=== PATIENT | male | born 1945 | race Caucasian/White ===

== ENCOUNTER 2017-04-08 18:46 | Inpatient (IN) | payer OTHER ==
[2017-04-08] MEDS ORDERED: NS 0.9% 1000 ML*IV.FLUID IV ONE (20:51)
[2017-04-08] MEDS ORDERED: Ondansetron INJ* 2 MG/ML VIAL IV ONE (20:51)
[2017-04-08] MEDS ORDERED: Morphine INJ* 4 MG/ML 1 ML CARPUJECT IV ONE (20:54)
[2017-04-08] MEDS ORDERED: metroNIDAZOLE IV 500 MG/100ML* 500 MG/100 ML BAG IVPB ONE (20:55)
[2017-04-08] MEDS ORDERED: Levofloxacin 500 MG IVPREMIX(* 500 MG/100 ML BAG IVPB ONE (20:55)
[2017-04-08 21:21] LABS: Urine Appearance Clear; Urine Blood 2+ (Negative); Urine Color Yellow; Urine Ketones Negative (Negative); Urine Protein Negative (Negative); Urine Specific Gravity 1.011 (1.010-1.030); Urine Urobilinogen Negative (Negative)
[2017-04-08 21:29] LABS: ABS Basophils 0.2 10^3/ul (0-0.2); ABS Eosinophils 0 10^3/ul (0-0.6); ABS Lymphocytes 0.8 10^3/ul (1.0-4.8); ABS Monocytes 3.4 10^3/ul (0-0.8); ABS Neutrophils 17.6 10^3/ul (1.5-7.7); ABS Nucleated RBC 0 10^3/ul; Eosinophil % 0 % (0-6); Hematocrit 40 % (42-52); Hemoglobin 13.4 g/dl (14.0-18.0); Lymphocyte % 3.5 % (25-47); Mean Corpuscular HGB Conc 34 g/dl (31-36); Mean Corpuscular Hemoglobin 32 pg (27-31); Mean Corpuscular Volume 94 fL (80-94); Mean Platelet Volume 10 um3 (7.4-10.4); Nucleated Red Blood Cells % 0; Platelet Count 149 10^3/ul (150-450); Red Blood Count 4.22 10^6/ul (4.0-5.4); Red Cell Distribution Width 14 % (10.5-15)
[2017-04-08 21:39] LABS: INR 0.9 (0.77-1.02)
[2017-04-08 21:43] LABS: EGFR Non-African American 45.4 (>60)
[2017-04-08 21:51] LABS: Platelet Morphology Large
--- NOTE | 2017-04-08 21:58 | RAD ---
INDICATION: Right upper quadrant pain. COMPARISON: There are no prior studies available for comparison. TECHNIQUE: Multiple real-time images of the right upper quadrant were obtained. FINDINGS: The gallbladder is contracted limiting the study. No gallstones or gallbladder wall thickening is seen. No intra or extrahepatic ductal distention is present. The common bile duct measured 0.3 cm in diameter. The liver is mildly enlarged without focal abnormality. The pancreas is partially obscured by overlying bowel gas. The right kidney is normal in size without evidence for hydronephrosis. IMPRESSION: 1. CONTRACTED GALLBLADDER, NO GALLSTONES OR GALLBLADDER WALL THICKENING IS SEEN. 2. MILD HEPATOMEGALY.
--- NOTE | 2017-04-09 00:55 | RAD ---
INDICATION: Abdominal pain. COMPARISON: Comparison is made with a prior right upper quadrant ultrasound from April 08, 2017. TECHNIQUE: A CT scan of the abdomen and pelvis was performed without intravenous or oral contrast. Contiguous axial sections were obtained from the lung bases through the symphysis pubis. Images were reconstructed in the coronal and sagittal planes. FINDINGS: The lung bases are clear. No pleural effusion is present. There is a small right pleural effusion and right lower lobe infiltrate. The left lung base appears clear. The liver and spleen are within normal limits in size without focal abnormality on this noncontrast study. No calcified gallstones are seen. The pancreas appears to be within normal limits. The adrenal glands and kidneys are normal in size. No renal calculi or hydronephrosis is seen. The urinary bladder appears distended. No intraluminal abnormality or wall thickening is seen. The patient is status post prostatectomy. The aorta is normal in caliber with moderate calcific plaque present. No significant enlarged retroperitoneal lymph nodes are seen. The stomach, small and large bowel appear nondistended. The appendix is within normal limits. There is mild descending and sigmoid diverticulosis without evidence for diverticulitis. No free intraperitoneal air or fluid is seen. No significant focal osseous abnormality is seen. IMPRESSION: 1. SMALL RIGHT PLEURAL EFFUSION AND RIGHT LOWER LOBE INFILTRATE. 2. DISTENDED URINARY BLADDER. 3. STATUS POST POST PROSTATECTOMY.
--- NOTE | 2017-04-09 01:30 | ED ---
Dniesh Flores Tecjoon, scribed for Amelia Short MD on 04/08/17 at 2101 . Abdominal Pain/Male - HPI Summary HPI Summary: This patient is a 72 year old brought in by correctional facility vehicle to [facility] accompanied by correctional officers with a chief complaint of right flank pain since 3 days ago. Patients that that its in his liver or kidney. Patient is lying on his right side and has difficulty moving into another position without flares of pain. The pain is rated 7/10 in severity. Symptoms aggravated by movement. Symptoms alleviated by nothing. Patient additionally reports fever. Patient denies vomiting. - History of Current Complaint Chief Complaint: EDFlankPain Stated Complaint: RT FLANK PAIN Time Seen by Provider: 04/08/17 20:27 Hx Obtained From: Patient Onset/Duration: Lasting Days - 3 Timing: Constant Severity Currently: Moderate Pain Intensity: 7 Pain Scale Used: 0-10 Numeric Location: Other - right abdomen Aggravating Factor(s): Movement Alleviating Factor(s): Nothing Associated Signs And Symptoms: Positive: Negative - vomiting, Other - fever - Allergies/Home Medications Allergies/Adverse Reactions: Allergies Allergy/AdvReac Type Severity Reaction Status Date / Time Sulfa Antibiotics Allergy Severe Rash Verified 04/08/17 21:03 Aspirin [ASA] Allergy Rash Verified 04/08/17 21:04 Ibuprofen Allergy Rash Verified 04/08/17 21:04 iv dye Allergy Rash Uncoded 04/08/17 21:22 PMH/Surg Hx/FS Hx/Imm Hx Previously Healthy: Yes Opthamlomology History: Reports: Other Sensory Impairments - "broken equilibrium ", uses wheelchair for movement Denies: Hx Legally Blind EENT History: Denies: Hx Deafness - Surgical History Surgery Procedure, Year, and Place: Prostate Infectious Disease History: No Infectious Disease History: Denies: Traveled Outside the [place] in Last 30 Days - Family History Known Family History: Negative: Seizure Disorder - Social History Occupation: Unemployed Lives: [facility] - correctional facility Alcohol Use: None Hx Substance Use: No Substance Use Type: Reports: None Smoking Status (MU): Unknown if Ever Smoked Review of Systems Positive: Fever Positive: Abdominal Pain. Negative: Vomiting All Other Systems Reviewed And Are Negative: Yes Physical Exam - Summary Physical Exam Summary: VITAL SIGNS: Reviewed. GENERAL: Patient is an elderly male who is lying in the stretcher. Patient is not in any acute respiratory distress. HEAD AND FACE: No signs of trauma. No ecchymosis, hematomas or skull depressions. No sinus tenderness. EYES: PERRLA, EOMI x 2, No injected conjunctiva, no nystagmus. EARS: Hearing grossly intact. Ear canals and tympanic membranes are within normal limits. MOUTH: Oropharynx within normal limits. NECK: Supple, trachea is midline, no adenopathy, no JVD, no carotid bruit, no c- spine tenderness, neck with full ROM. CHEST: Symmetric, no tenderness at palpation LUNGS: Clear to auscultation bilaterally. No wheezing or crackles. CVS: Regular rate and rhythm, S1 and S2 present, no murmurs or gallops appreciated. ABDOMEN: RUQ tenderness. Lora's sign positive. EXTREMITIES: FROM in all major joints, no edema, no cyanosis or clubbing. NEURO: Alert and oriented x 3. No acute neurological deficits. Speech is normal and follows commands. SKIN: Dry and warm Triage Information Reviewed: Yes Vital Signs On Initial Exam: Initial Vitals Temp Pulse Resp BP Pulse Ox 98.5 F 106 20 133/76 94 04/08/17 18:50 04/08/17 18:50 04/08/17 18:50 04/08/17 18:50 04/08/17 18:50 Vital Signs Reviewed: Yes Diagnostics - Vital Signs Vital Signs Temp Pulse Resp BP Pulse Ox 04/08/17 20:38 122 155/97 91 04/08/17 18:50 98.5 F 106 20 133/76 94 - Laboratory Result Diagrams: 04/08/17 21:16 04/08/17 21:16 Lab Statement: Any lab studies that have been ordered have been reviewed, and results considered in the medical decision making process. - Radiology CXR Xray Interpretation: Positive (See Comments) - IMPRESSION: Questionable right lower lung nodule Radiology Interpretation Completed By: ED Physician - EKG 8761 Cardiac Rate: Tachycardia EKG Rhythm: Sinus Tachycardia - 103 BPM EKG Interpretation: Sinus tachycardia (103 BPM), Normal axis, Incomplete left bundle block. - Additional Comments Diagnostic Additional Comments: US Abdomen reveals, per radiologist, IMPRESSION: 1. CONTRACTED GALLBLADDER, NO GALLSTONES OR GALLBLADDER WALL THICKENING IS SEEN. 2. MILD HEPATOMEGALY. ED physician has reviewed this radiology report. Abdominal Pain Fem Course/Dx - Course Course Of Treatment: This patient is a 72 year old brought in by correctional facility vehicle to [facility] accompanied by correctional officers with a chief complaint of right flank pain since 3 days ago. Patients that that its in his liver or kidney. EKG, US Abd, and CXR taken. Bloodwork Obtained. In the ED course the patient was given Zofran, Morphine, Flagyl, Levaquin. Patient will be admitted with diagnosis of right lower pneumonia. Patient is agreeable to this plan. - Diagnoses Provider Diagnoses: Right lower lobe pneumonia - Provider Notifications Discussed Care Of Patient With: Tiago Finn - Hospitalist Time Discussed With Above Provider: 01:22 - We discussed patient care with Dr. Finn (Hospitalist) and he agrees to admit patient. Discharge - Discharge Plan Condition: Fair Disposition: HOME Patient Education Materials: Pneumonia (ED) Referrals: No Primary Care Phys,NOPCP [Primary Care Provider] - 3 Days Additional Instructions: Patient will be discharged with a diagnosis of right lower pneumonia. Patient is advised to follow up with PCP in 3 days. RETURN TO EMERGENCY DEPARTMENT FOR ANY NEW OR WORSENING SYMPTOMS The documentation as recorded by the Dinesh horan Tecjoon accurately reflects the service I personally performed and the decisions made by , Amelia Short MD.
[2017-04-09] MEDS ORDERED: Dextrose 50% Syringe 50 ML* 25 GM/50 ML SYRINGE IV PUSH PRN (01:41)
[2017-04-09] MEDS ORDERED: Ondansetron INJ* 2 MG/ML VIAL IV PRN (01:43)
[2017-04-09] MEDS ORDERED: Atorvastatin* 80 MG TAB PO ONE (01:45)
[2017-04-09] MEDS: Acetaminophen TAB* 325 MG PO PRN ×2 (03:24→10:41)
[2017-04-09] MEDS: NS 0.9% 1000 ML* 1,000 ML IV SCH ×2 (03:27→11:51)
--- NOTE | 2017-04-09 03:52 | HP ---
ADMISSION HISTORY AND PHYSICAL: DATE OF ADMISSION: 04/09/17 PRIMARY CARE PROVIDER: None. HEALTHCARE PROXY: Timi in [facility], one of close friend. CODE STATUS: Full. SOURCE OF INFORMATION: History obtained from interview with the patient, review of medical records from [facility]. RELIABILITY: Fair. HISTORY OF PRESENT ILLNESS: This is a 72-year-old man has been in his usual state of health until approximately 3 to 4 days prior to presentation, started to note right lower chest and right flank pain, described as stabbing, waxing and waning with a pleuritic nature, worse with deep breathing or sneezing. He denied any cough except in the morning after waking up; however, developed fevers to a 100.5 degrees for the last two days for which he was directed to [facility] ED. He has had no nausea or vomiting. No diarrhea, although he suffers from constipation chronically. No blood in his stool or melena. No weight changes. No medication changes to the best of his knowledge. When seen in the ED, he was sitting on the side of the bed, interactive, but this pain was improved, in no distress. PAST MEDICAL HISTORY: Includes type 2 diabetes; prostate cancer, status post prostatectomy and recurrence, now on Lupron; hypertension; bipolar 1; hyperlipidemia; Alzheimer's dementia; CKD; right knee replacement. MEDICATIONS: From the clinical mediational and drug list from [facility] include: 1. Actos 15 mg daily. 2. Metformin 500 mg daily. 3. Extended release aspirin 81 mg daily. 4. Hydrochlorothiazide 25 mg daily. 5. Lipitor 80 mg in the evening. 6. Tylenol 325 mg twice daily. Now the record for Tylenol appears to be 325 mg three tabs 3 times daily, although this is not clear. In the script medication which appears to be: 1. Milk of magnesia 30 mL daily. 2. Lupron Depot 45 mg due in October. 3. Triamcinolone 0.1% twice daily. 4. Eucerin cream daily for xerosis. 5. Os-[place] 500 mg twice daily. 6. Tucks. 7. Tegretol 100 mg twice daily. 8. Aricept 5 mg in the evening. 9. Cardizem XR 240 mg daily. ALLERGIES: To SULFA ANTIBIOTICS, ASPIRIN, IBUPROFEN, and IV DYE. FAMILY HISTORY: Father with CAD. SOCIAL HISTORY: Resident of [facility]. Smoked tobacco approximately 2 packs per day for 35 years, quit 25 years prior. No alcohol. No illicits. REVIEW OF SYSTEMS: As per HPI, otherwise all other systems negative. PHYSICAL EXAMINATION GENERAL: Sitting on the edge of the stretcher, interactive, pleasant, in no apparent distress. VITAL SIGNS: In the emergency room, blood pressure 110/73, heart rate ranging from 100 to 122 on presentation, respiratory rate 26, T-max 98.5, and 94% on room air when seen by this author. HEENT: Oropharynx is clear, dentures. Moist mucous membranes. Sclerae are anicteric. NECK: He has non-elevated JVD. No cervical or supraclavicular lymphadenopathy. LUNGS: He has rales in the right base up one-half to the apex without wheezes. HEART: Regular rate and rhythm. No murmurs. ABDOMEN: Soft and nondistended. Mild tenderness in the right upper quadrant. He has right costovertebral angle tenderness. EXTREMITIES: Warm and well perfused. He has 1+ lower extremity pitting edema. NEUROLOGIC: He is alert and oriented x3. His cranial nerves II through XII are intact. He has no apparent anxiety, agitation, or depression. DIAGNOSTIC STUDIES/LAB DATA: Labs are notable for a white blood cell count of 22,000, 80% neutrophils and 15.4% monocytes, hemoglobin 13.4, platelets 149. INR 0.9. Sodium 132, chloride 94, BUN 24, creatinine 1.52, unknown baseline, glucose 150, lactic acid 1.4. CRP is 303. His urine is notable for blood and triple phosphate crystals. CT abdomen and pelvis, impression: Small right pleural effusion and right lower lobe infiltrate. Distended urinary bladder. Status post prostatectomy. Abdominal ultrasound, contracted gallbladder. No gallstones or gallbladder wall thickening. Chest x-ray interpreted by this author, consistent with right middle lobe pneumonia, official interpretation in the morning. ASSESSMENT AND PLAN: 1. This is a 72-year-old man presenting from [facility] with several days of fever as well as abdominal pain, found with pain more described as right chest and right flank pain and suspected right-sided pneumonia. 2. Sepsis with elevated white blood cell count and concern for end-organ damage with elevated creatinine. The patient did note he has chronic kidney disease, so this creatinine may be at baseline which would negate the diagnosis of sepsis at this time. The patient does have a diagnosis of pneumonia for which he has already received Levaquin and Flagyl in the emergency room. We will transition to ceftriaxone and azithromycin tomorrow starting in the morning. Give additional liter of fluid tonight at 150 cc per hour. Repeat CBC and CMP in the morning. Check sputum culture as well as urine for Strep pneumo and Legionella antigens. 3. Chronic kidney disease. Check dose meds accordingly, unclear what baseline is and if this represents any acute on chronic disease, fluids as above. 4. Type 2 diabetes, holding oral medications, covering with lispro sliding scale. 5. Hypertension. Holding hydrochlorothiazide as he is rehydrated. Continue with Cardizem. 6. Distended bladder seen on CAT scan, also on the setting of phosphate crystals and some abdominal pain however in his right upper quadrant. We will check a postvoid bladder scan. 7. Bipolar disorder. Continue Tegretol. 8. Dementia. Continue Aricept, although questionable benefit. 9. DVT prophylaxis. Heparin subcu. [id number]/[facility] #: [id number] [facility]
[2017-04-09] MEDS: Heparin VIAL(*) 5000 UNITS/ML VIAL (FIVE THOUSAND) SUBCUT SCH ×3 (05:02→20:46)
[2017-04-09 06:55] LABS: Hematocrit 33 % (42-52); Hemoglobin 11.1 g/dl (14.0-18.0); Mean Corpuscular HGB Conc 34 g/dl (31-36); Mean Corpuscular Hemoglobin 32 pg (27-31); Mean Corpuscular Volume 95 fL (80-94); Mean Platelet Volume 10 um3 (7.4-10.4); Platelet Count 139 10^3/ul (150-450); Red Blood Count 3.44 10^6/ul (4.0-5.4); Red Cell Distribution Width 14 % (10.5-15)
[2017-04-09 07:29] LABS: EGFR Non-African American 43.4 (>60); Monocytes % 9 % (0-13)
[2017-04-09 07:30] LABS: ABS Basophils 0 10^3/ul (0-0.2); ABS Eosinophils 0 10^3/ul (0-0.6); ABS Monocytes 1.5 10^3/ul (0-0.8); ABS Neutrophils 14.5 10^3/ul (1.5-7.7)
[2017-04-09] MEDS: traMADol TAB* 50 MG PO PRN (07:46)
[2017-04-09] MEDS: Diltiazem CD CAP* 240 MG PO SCH (07:47)
[2017-04-09] MEDS: carBAMazepine TAB(*) 200 MG PO SCH ×2 (07:47→20:46)
[2017-04-09] MEDS: Donepezil TAB* 5 MG PO SCH (07:48)
--- NOTE | 2017-04-09 07:53 | RAD ---
INDICATION: Fever COMPARISON: None. TECHNIQUE: Single AP portable view of the chest was obtained. FINDINGS: Image quality is compromised due to the relative inferiority of a portable chest x-ray. The heart and mediastinum exhibit normal size and contour. There is infiltrate at the dependent-most portion of the right lower lung. Elsewhere the lungs are adequately clear. Lungs are grossly clear. There is no evidence of a large pleural effusion. Visualized bones are normal for the patient's age. IMPRESSION: Density at the right lung base could represent infiltrate or atelectasis.
[2017-04-09] MEDS ORDERED: Ketorolac INJ* 15 MG/ML 1 ML VIAL IV PUSH PRN (08:53)
[2017-04-09] MEDS ORDERED: Azithromycin IV(*) 500 MG in D5W 250 ML BAG* 250 ML IVPB SCH (09:00)
[2017-04-09] MEDS ORDERED: Aspirin EC Low Dose* 81 MG TAB.EC PO SCH (09:00)
[2017-04-09] MEDS ORDERED: Pneumococcal *Vac Polyvalent 0.5 ML VIAL IM ONE (09:00)
--- NOTE | 2017-04-09 10:39 | PN ---
Subjective Date of Service: 04/09/17 Interval History: C/o pain to right flank and right anterior and posterior rib pain with cough/ deep breath and palpation. no change in the intensity or location of pain. Denies shortness of breath, denies nausea or vomiting. reports 1 episode of diarrhea this AM. Denies abd pain. Denies chest pain Objective Active Medications: Acetaminophen (Tylenol Tab*) 650 mg PO Q4H PRN PRN Reason: FEVER/PAIN Last Admin: 04/09/17 03:24 Dose: 650 mg Azithromycin (Zithromax Tab*) 250 mg PO DAILY [facility] Carbamazepine (Tegretol Tab(*)) 100 mg PO BID [facility] Last Admin: 04/09/17 07:47 Dose: 100 mg Dextrose (D50w Syringe 50 Ml*) 12.5 gm IV PUSH .FOR FS < 60 - SS PRN PRN Reason: FS < 60 Diltiazem HCl (Cardizem Cd Cap*) 240 mg PO DAILY [facility] Last Admin: 04/09/17 07:47 Dose: 240 mg Donepezil HCl (Aricept Tab*) 5 mg PO DAILY [facility] Last Admin: 04/09/17 07:48 Dose: 5 mg Heparin Sodium (Porcine) (Heparin Vial(*)) 5,000 units SUBCUT Q8HR [facility] Last Admin: 04/09/17 05:02 Dose: 5,000 units Ceftriaxone Sodium 1 gm/ (Dextrose) 50 mls @ 200 mls/hr IVPB Q24H [facility] Sodium Chloride (Ns 0.9% 1000 Ml*) 1,000 mls @ 150 mls/hr IV PER RATE [facility] Stop: 04/10/17 08:24 Last Admin: 04/09/17 03:27 Dose: 150 mls/hr Insulin Human Lispro (Humalog*) 0 units SUBCUT ACHS [facility] PRN Reason: Protocol Ketorolac Tromethamine (Toradol Inj*) 15 mg IV PUSH Q6H PRN PRN Reason: PAIN Ondansetron HCl (Zofran Inj*) 4 mg IV Q4H PRN PRN Reason: NAUSEA/VOMITING Tramadol HCl (Ultram*) 50 mg PO Q6H PRN PRN Reason: PAIN Last Admin: 04/09/17 07:46 Dose: 50 mg Vital Signs - 8 hr 04/09/17 04/09/17 04/09/17 03:03 03:06 03:11 Temperature 100.3 F 97.9 F 100.3 F Pulse Rate 100 104 100 Respiratory 20 16 20 Rate Blood Pressure 135/79 110/73 135/79 (mmHg) O2 Sat by Pulse 94 100 94 Oximetry 04/09/17 07:46 Temperature Pulse Rate Respiratory 28 Rate Blood Pressure (mmHg) O2 Sat by Pulse Oximetry Oxygen Devices in Use Now: None Appearance: awake alert, sitting on the bed, appears comfortable Eyes: No Scleral Icterus, PERRLA Ears/Nose/Mouth/Throat: Clear Oropharnyx, Mucous Membranes Moist Neck: NL Appearance and Movements; NL JVP, Trachea Midline Respiratory: Symmetrical Chest Expansion and Respiratory Effort, - - diminshed breath sounds t/o bilat Cardiovascular: NL Sounds; No Murmurs; No JVD, No Edema Abdominal: NL Sounds; No Tenderness; No Distention Extremities: No Edema, No Clubbing, Cyanosis, - - pedal pulses +2 bilat Skin: No Rash or Ulcers Neurological: Alert and Oriented x 3 - moves all ext Result Diagrams: 04/11/17 06:46 04/11/17 06:46 Assess/Plan/Problems-Billing Assessment: This is a 72 y.o male that presented to the Emergency room for right flank and right chest pain, worse with deep breath and coughing and palpation to the area for the past 3-4 days. developed a fever 2 days ago. Chest xray shows possible right sided infiltrate. - Patient Problems (1) Pneumonia Current Visit: Yes Code(s): J18.9 - PNEUMONIA, UNSPECIFIED ORGANISM SNOMED Code(s): 231718234 Comment: continue IV antibiotics Azithromycin and Ceftriaxone Nebulizer as needed Continue to monitor vital signs Maintain o2 saturations of 92-96 on RA (2) Pleuritic pain Current Visit: Yes Comment: Oxycodone as needed for severe pain Tramadol as needed for moderate pain Can use tylenol as needed for pain encouraged deep breathing May use heat pack for right rib pain to assist with comfort (3) Diabetes Current Visit: Yes Code(s): E11.9 - TYPE 2 DIABETES MELLITUS WITHOUT COMPLICATIONS SNOMED Code(s): 89872309 Comment: Will hold oral diabetic agents Place on sliding scale Lispro Monitor blood sugars Q AC and HS (4) Renal failure Current Visit: Yes Status: Acute Comment: Suspect this may acute/ chronic renal disease patient reports that he has a history of kidney failure Will avoid Nephrotoxic agents (5) DVT prophylaxis Code(s): UNE8179 - SNOMED Code(s): 562836466 Comment: Heparin SubQ (6) Full code status Code(s): Z78.9 - OTHER SPECIFIED HEALTH STATUS SNOMED Code(s): 762721127 Status and Disposition: continue to monitor vital signs, repeat labs in AM, d/c to home in the next 1-2 days
[2017-04-09] MEDS: Insulin LISPRO* 1 UNITS UNIT SUBCUT SCH ×4 (11:56→20:53)
[2017-04-09] MEDS: cefTRIAXone(*) 1 GM in D5W 50 ML BAG* 50 ML IVPB SCH (12:32)
[2017-04-09] MEDS ORDERED: CMCS: Meloxicam(NF) 7.5 MG TAB PO ONE (15:00)
[2017-04-09] MEDS ORDERED: oxyCODONE/Acetamin 5/325 MG* TAB PO ONE (15:01)
[2017-04-09] MEDS: Senna TAB PO PRN (20:46)
[2017-04-09] MEDS: oxyCODONE/Acetamin 5/325 MG* TAB PO PRN (20:46)
[2017-04-10] MEDS: Acetaminophen TAB* 325 MG PO PRN ×2 (03:27→19:01)
[2017-04-10] MEDS: oxyCODONE/Acetamin 5/325 MG* TAB PO PRN ×5 (03:27→23:27)
[2017-04-10] MEDS: Heparin VIAL(*) 5000 UNITS/ML VIAL (FIVE THOUSAND) SUBCUT SCH ×3 (05:40→22:10)
[2017-04-10 07:01] LABS: ABS Basophils 0 10^3/ul (0-0.2); ABS Eosinophils 0.1 10^3/ul (0-0.6); ABS Lymphocytes 1.2 10^3/ul (1.0-4.8); ABS Monocytes 2.2 10^3/ul (0-0.8); ABS Neutrophils 10.6 10^3/ul (1.5-7.7); ABS Nucleated RBC 0 10^3/ul; Eosinophil % 0.5 % (0-6); Hematocrit 30 % (42-52); Hemoglobin 10.1 g/dl (14.0-18.0); Lymphocyte % 8.4 % (25-47); Mean Corpuscular HGB Conc 33 g/dl (31-36); Mean Corpuscular Hemoglobin 32 pg (27-31); Mean Corpuscular Volume 96 fL (80-94); Mean Platelet Volume 9 um3 (7.4-10.4); Nucleated Red Blood Cells % 0; Platelet Count 165 10^3/ul (150-450); Red Blood Count 3.17 10^6/ul (4.0-5.4); Red Cell Distribution Width 14 % (10.5-15)
[2017-04-10 07:18] LABS: EGFR Non-African American 45.8 (>60)
[2017-04-10] MEDS: Diltiazem CD CAP* 240 MG PO SCH (08:16)
[2017-04-10] MEDS: carBAMazepine TAB(*) 200 MG PO SCH ×2 (08:16→22:07)
[2017-04-10] MEDS: cefTRIAXone(*) 1 GM in D5W 50 ML BAG* 50 ML IVPB SCH (08:18)
[2017-04-10] MEDS: Donepezil TAB* 5 MG PO SCH (08:18)
[2017-04-10] MEDS: Insulin LISPRO* 1 UNITS UNIT SUBCUT SCH ×4 (08:38→22:00)
[2017-04-10] MEDS ORDERED: Azithromycin IV(*) 250 MG in NS 0.9% 250 ML* 250 ML IVPB SCH (09:00)
[2017-04-10] MEDS ORDERED: Azithromycin TAB* 250 MG PO SCH (09:00)
--- NOTE | 2017-04-10 11:36 | RAD ---
INDICATION: Fever COMPARISON: April 08, 2017 TECHNIQUE: PA and lateral dual-energy views were obtained. FINDINGS: Bones/Soft Tissues: There are no acute bony findings. Cardiomediastinal: The cardiomediastinal silhouette is normal. Lungs: There is infiltrate or atelectasis in the right lung base. Pleura: There may be a small right-sided effusion. Other: None IMPRESSION: RIGHT BASILAR INFILTRATE. SUGGEST FOLLOW-UP.
--- NOTE | 2017-04-10 12:08 | PN ---
Subjective Date of Service: 04/10/17 Interval History: Mr. Dennis continue to c/o right anterior and posterior rib pain with deep breath, coughing and palpation. Was febrile during the night with T-max of 102. Denies SOB, Denies nausea , vomiting or diarrhea. Denies abd pain. Denies difficulty urinating. Denies chest pain. Family History: Unchanged from Admission Social History: Unchanged from Admission Past Medical History: Unchanged from Admission Objective Active Medications: Acetaminophen (Tylenol Tab*) 650 mg PO Q4H PRN PRN Reason: FEVER/PAIN Last Admin: 04/10/17 03:27 Dose: 650 mg Carbamazepine (Tegretol Tab(*)) 100 mg PO BID [facility] Last Admin: 04/10/17 08:16 Dose: 100 mg Dextrose (D50w Syringe 50 Ml*) 12.5 gm IV PUSH .FOR FS < 60 - SS PRN PRN Reason: FS < 60 Diltiazem HCl (Cardizem Cd Cap*) 240 mg PO DAILY [facility] Last Admin: 04/10/17 08:16 Dose: 240 mg Donepezil HCl (Aricept Tab*) 5 mg PO DAILY [facility] Last Admin: 04/10/17 08:18 Dose: 5 mg Heparin Sodium (Porcine) (Heparin Vial(*)) 5,000 units SUBCUT Q8HR [facility] Last Admin: 04/10/17 05:40 Dose: 5,000 units Ceftriaxone Sodium 1 gm/ (Sodium Chloride) 50 mls @ 200 mls/hr IVPB Q24HR [facility] Insulin Human Lispro (Humalog*) 0 units SUBCUT ACHS [facility] PRN Reason: Protocol Last Admin: 04/10/17 08:38 Dose: Not Given Ondansetron HCl (Zofran Inj*) 4 mg IV Q4H PRN PRN Reason: NAUSEA/VOMITING Oxycodone/Acetaminophen (Percocet 5/325 Tab*) 1 tab PO Q4H PRN PRN Reason: PAIN Last Admin: 04/10/17 08:17 Dose: 1 tab Senna (Senokot Tab*) 1 tab PO BEDTIME PRN PRN Reason: CONSTIPATION Last Admin: 04/09/17 20:46 Dose: 1 tab Tramadol HCl (Ultram*) 50 mg PO Q6H PRN PRN Reason: PAIN Last Admin: 04/09/17 07:46 Dose: 50 mg Vital Signs - 8 hr 04/10/17 04/10/17 04/10/17 05:42 07:39 08:17 Temperature 98.1 F 98.6 F Pulse Rate 77 Respiratory 18 16 24 Rate Blood Pressure 107/60 (mmHg) O2 Sat by Pulse 93 Oximetry Oxygen Devices in Use Now: None Appearance: appear well sitting on the edge of the bed, color is pink, alert and oriented x3 Eyes: No Scleral Icterus, PERRLA Ears/Nose/Mouth/Throat: Clear Oropharnyx, Mucous Membranes Moist Neck: NL Appearance and Movements; NL JVP, Trachea Midline Respiratory: Symmetrical Chest Expansion and Respiratory Effort, - - diminished on the Right, left is clear Cardiovascular: NL Sounds; No Murmurs; No JVD, RRR, No Edema Abdominal: NL Sounds; No Tenderness; No Distention Extremities: No Edema, No Clubbing, Cyanosis Skin: No Rash or Ulcers Neurological: Alert and Oriented x 3, NL Gait, NL Muscle Strength and Tone Result Diagrams: 04/11/17 06:46 04/11/17 06:46 Microbiology and Other Data: Microbiology 04/10/17 08:30 Influenza Types A,B Antigen (JAVID) - Final Nasal Specimen received for Influenza A/B Molecular testing 04/09/17 12:20 Gram Stain - Final Sputum FLU swab was Negative Diagnostic Imaging: Chest xray 04/10/17 :There is infiltrate or atelectasis in the right lung base. Pleura: There may be a small right-sided effusion. Assess/Plan/Problems-Billing Assessment: This is a 72 y.o male that presented to the Emergency room for right flank and right chest pain, worse with deep breath and coughing and palpation to the area for the past 3-4 days. developed a fever 2 days ago. Chest xray shows possible right sided infiltrate . - Patient Problems (1) Pneumonia Current Visit: Yes Code(s): J18.9 - PNEUMONIA, UNSPECIFIED ORGANISM SNOMED Code(s): 661094059 Comment: continue antibiotics Azithromycin and Ceftriaxone Nebulizer as needed Continue to monitor vital signs Maintain o2 saturations of 92-96 on RA (2) Pleuritic pain Current Visit: Yes Comment: Oxycodone as needed for severe pain Tramadol as needed for moderate pain Can use tylenol as needed for pain encouraged deep breathing May use heat pack for right rib pain to assist with comfort (3) Diabetes Current Visit: Yes Code(s): E11.9 - TYPE 2 DIABETES MELLITUS WITHOUT COMPLICATIONS SNOMED Code(s): 19299841 Comment: Will hold oral diabetic agents Place on sliding scale Lispro Monitor blood sugars Q AC and HS (4) Renal failure Current Visit: Yes Status: Acute Comment: Suspect this may acute/ chronic renal disease patient reports that he has a history of kidney failure Will avoid Nephrotoxic agents (5) Fever Current Visit: Yes Status: Acute Code(s): R50.9 - FEVER, UNSPECIFIED SNOMED Code(s): 431886048 Comment: T max 102 for the past 24 hours Will continue tylenol as needed for fever management FLU swab was obtained and Negative Continue IV antibiotics Status and Disposition: continue to monitor vital signs, repeat labs in AM, d/c to home in the next 1-2 days
[2017-04-10] MEDS: traMADol TAB* 50 MG PO PRN ×2 (14:53→22:08)
[2017-04-11] MEDS: Heparin VIAL(*) 5000 UNITS/ML VIAL (FIVE THOUSAND) SUBCUT SCH ×2 (05:15→13:33)
[2017-04-11] MEDS: oxyCODONE/Acetamin 5/325 MG* TAB PO PRN (05:15)
[2017-04-11 07:18] LABS: ABS Basophils 0.1 10^3/ul (0-0.2); ABS Eosinophils 0.3 10^3/ul (0-0.6); ABS Lymphocytes 0.8 10^3/ul (1.0-4.8); ABS Neutrophils 8.9 10^3/ul (1.5-7.7); ABS Nucleated RBC 0.01 10^3/ul; Eosinophil % 2.6 % (0-6); Hematocrit 30 % (42-52); Hemoglobin 10.1 g/dl (14.0-18.0); Mean Corpuscular HGB Conc 33 g/dl (31-36); Mean Corpuscular Hemoglobin 32 pg (27-31); Mean Corpuscular Volume 95 fL (80-94); Mean Platelet Volume 10 um3 (7.4-10.4); Nucleated Red Blood Cells % 0.1; Platelet Count 228 10^3/ul (150-450); Red Blood Count 3.18 10^6/ul (4.0-5.4); Red Cell Distribution Width 14 % (10.5-15)
[2017-04-11 07:23] LABS: ABS Monocytes 1.8 10^3/ul (0-0.8)
[2017-04-11 07:32] LABS: EGFR Non-African American 53.5 (>60)
[2017-04-11] MEDS: carBAMazepine TAB(*) 200 MG PO SCH (07:50)
[2017-04-11] MEDS: Donepezil TAB* 5 MG PO SCH (07:51)
[2017-04-11] MEDS: Diltiazem CD CAP* 240 MG PO SCH (07:51)
[2017-04-11] MEDS: Insulin LISPRO* 1 UNITS UNIT SUBCUT SCH ×3 (07:51→17:49)
[2017-04-11] MEDS ORDERED: Azithromycin IV(*) 250 MG in NS 0.9% 250 ML* 250 ML IVPB SCH (08:00)
[2017-04-11] MEDS ORDERED: cefTRIAXone(*) 1 GM in NS 0.9% 50 ML* 50 ML IVPB SCH (09:00)
[2017-04-11] MEDS ORDERED: Magnesium Hydroxide LIQ* 30 ML UDC PO ONE (10:09)
--- NOTE | 2017-04-11 11:54 | PN ---
Subjective Date of Service: 04/11/17 Interval History: Patient states that he is feeling better. States that he is able to take deeper breaths. States that the heat packs are helping the pain to the right lower ribs. Denies increased shortness of breath. does report right lower rib pain with deep breath and palpation. Denies nausea, vomiting or diarrhea. Does report some constipation. denies any urinary symptoms. Family History: Unchanged from Admission Social History: Unchanged from Admission Past Medical History: Unchanged from Admission Objective Active Medications: Acetaminophen (Tylenol Tab*) 650 mg PO Q4H PRN PRN Reason: FEVER/PAIN Last Admin: 04/10/17 19:01 Dose: 650 mg Carbamazepine (Tegretol Tab(*)) 100 mg PO BID [facility] Last Admin: 04/11/17 07:50 Dose: 100 mg Dextrose (D50w Syringe 50 Ml*) 12.5 gm IV PUSH .FOR FS < 60 - SS PRN PRN Reason: FS < 60 Diltiazem HCl (Cardizem Cd Cap*) 240 mg PO DAILY [facility] Last Admin: 04/11/17 07:51 Dose: 240 mg Donepezil HCl (Aricept Tab*) 5 mg PO DAILY [facility] Last Admin: 04/11/17 07:51 Dose: 5 mg Heparin Sodium (Porcine) (Heparin Vial(*)) 5,000 units SUBCUT Q8HR [facility] Last Admin: 04/11/17 05:15 Dose: 5,000 units Ceftriaxone Sodium 1 gm/ (Sodium Chloride) 50 mls @ 200 mls/hr IVPB Q24HR [facility] Last Admin: 04/11/17 07:51 Dose: 200 mls/hr Azithromycin 250 mg/ Sodium (Chloride) 250 mls @ 250 mls/hr IVPB Q24H [facility] Last Admin: 04/11/17 09:46 Dose: 250 mls/hr Insulin Human Lispro (Humalog*) 0 units SUBCUT ACHS [facility] PRN Reason: Protocol Last Admin: 04/11/17 07:51 Dose: Not Given Ondansetron HCl (Zofran Inj*) 4 mg IV Q4H PRN PRN Reason: NAUSEA/VOMITING Oxycodone/Acetaminophen (Percocet 5/325 Tab*) 1 tab PO Q4H PRN PRN Reason: PAIN Last Admin: 04/11/17 05:15 Dose: 1 tab Senna (Senokot Tab*) 1 tab PO BEDTIME PRN PRN Reason: CONSTIPATION Last Admin: 04/09/17 20:46 Dose: 1 tab Tramadol HCl (Ultram*) 50 mg PO Q6H PRN PRN Reason: PAIN Last Admin: 04/10/17 22:08 Dose: 50 mg Vital Signs - 8 hr 04/11/17 04/11/17 04/11/17 05:15 08:00 08:01 Temperature Pulse Rate Respiratory 18 21 21 Rate Blood Pressure (mmHg) O2 Sat by Pulse Oximetry 04/11/17 04/11/17 10:13 11:00 Temperature 100.4 F Pulse Rate 97 Respiratory 16 Rate Blood Pressure 121/77 (mmHg) O2 Sat by Pulse 93 93 Oximetry Oxygen Devices in Use Now: None Appearance: Alert and oriented; Appears comfortable sitting on the edge of the bed. Eyes: No Scleral Icterus Ears/Nose/Mouth/Throat: Clear Oropharnyx, Mucous Membranes Moist Neck: NL Appearance and Movements; NL JVP, Trachea Midline Respiratory: Symmetrical Chest Expansion and Respiratory Effort, Clear to Auscultation, - - right lung with diminshed breath sounds Cardiovascular: NL Sounds; No Murmurs; No JVD, RRR, No Edema Abdominal: NL Sounds; No Tenderness; No Distention, - - bowel sounds active times 4, abd is soft and non distended Extremities: No Edema, No Clubbing, Cyanosis Skin: No Rash or Ulcers Neurological: Alert and Oriented x 3, NL Muscle Strength and Tone Nutrition: Taking PO's, - - tolerating PO foods and fluids Result Diagrams: 04/11/17 06:46 04/11/17 06:46 Microbiology and Other Data: Microbiology 04/10/17 08:30 Influenza Types A,B Antigen (JAVID) - Final Nasal Specimen received for Influenza A/B Molecular testing 04/09/17 12:20 Gram Stain - Final Sputum FLU swab was Negative Diagnostic Imaging: Chest xray 04/10/17 :There is infiltrate or atelectasis in the right lung base. Pleura: There may be a small right-sided effusion. Assess/Plan/Problems-Billing Assessment: This is a 72 y.o male that presented to the Emergency room for right flank and right chest pain, worse with deep breath and coughing and palpation to the area for the past 3-4 days. developed a fever 2 days ago. Chest xray shows possible right sided infiltrate . - Patient Problems (1) Pneumonia Current Visit: Yes Code(s): J18.9 - PNEUMONIA, UNSPECIFIED ORGANISM SNOMED Code(s): 749428884 Comment: Will Discharge home today; will continue antibiotics Azithromycin 250 mg po daily for 2 days- inpatient pharm cefdinir 300 mg po BID for 5 days incentive spirometer use 10 times every hour (2) Pleuritic pain Current Visit: Yes Comment: Can use tylenol as needed for pain encouraged deep breathing May use heat pack for right rib pain to assist with comfort (3) Diabetes Current Visit: Yes Code(s): E11.9 - TYPE 2 DIABETES MELLITUS WITHOUT COMPLICATIONS SNOMED Code(s): 42715299 Comment: Will resume home oral diabetic medications (4) Renal failure Current Visit: Yes Status: Acute Comment: Suspect this may acute/ chronic renal disease patient reports that he has a history of kidney failure Will avoid Nephrotoxic agents (5) Fever Current Visit: Yes Status: Acute Code(s): R50.9 - FEVER, UNSPECIFIED SNOMED Code(s): 193631504 Comment: T max 100.4 for the past 24 hours Will continue tylenol as needed for fever management FLU swab was obtained and Negative Will continue on oral antibiotics as outpatient Status and Disposition: [facility] be [facility] back the [facility]
[2017-04-11] MEDS: Acetaminophen TAB* 325 MG PO PRN (12:16)
[2017-04-11] MEDS: Senna TAB PO PRN (13:33)
[2017-04-11 15:51] VITALS: BP 114/61
--- NOTE | 2017-04-11 16:51 | PN ---
Hospitalist Progress Note Date of Service: 04/11/17 Mr. Dennis reports that is abd tenderness from early today has resolved. States that he has a large bowel movement and feels much better. Denies any blood in the stool.
--- NOTE | 2017-04-12 02:20 | DS ---
DISCHARGE SUMMARY: DATE OF ADMISSION: He presented to the ER 04/08/17. He was admitted in the early hours of 04/09/17. DATE OF DISCHARGE: 04/11/17 ATTENDING PHYSICIAN: Dr. Camille Coughlin * (dictation provided by Aleja Doherty NP) PRIMARY CARE PROVIDER: [facility]. PRIMARY DIAGNOSES: 1. Right-sided pneumonia, sepsis with elevated white count, concern for end- organ damage with elevated creatinine. 2. Acute on chronic kidney disease. SECONDARY DIAGNOSES: 1. Type 2 diabetes. 2. Hypertension. 3. Bipolar. 4. Dementia. STUDIES WHILE IN THE HOSPITAL: Initial chest x-ray on 04/08/17 showed density in the right lung base, which could represent infiltrate or atelectasis. Abdominal ultrasound from 03/09/17, radiologist's impression: 1. Contracted gallbladder. No gallstones or gallbladder wall thickening is seen. 2. Mild hepatomegaly. The right kidney was normal size without evidence of hydronephrosis. CT of the abdomen pelvis from 04/08/17, impression: 1. Small right pleural effusion and right lower lobe infiltrate. 2. Distended urinary bladder. 3. Status post prostatectomy. The stomach, small and large bowel appear nondistended. The appendix is within normal limits. There is mild descending and sigmoid diverticulosis without evidence of diverticulitis. Repeat chest x-ray on 04/10/17, impression: Right basilar infiltrate suggesting followup was radiologist's impression. There might be a small right- sided effusion. DISCHARGE MEDICATIONS: 1. Azithromycin 250 mg p.o. daily for 2 days, medications were dispensed. 2. Cefdinir 300 mg orally twice daily for 5 days, are new medications that he was sent home on. Continued home medications: 1. Actos 15 mg p.o. daily. 2. Metformin 500 mg daily. 3. Enteric-coated aspirin 81 mg daily. 4. Hydrochlorothiazide 25 mg daily. 5. Lipitor 80 mg daily. 6. Tylenol 325 mg twice daily. The record for Tylenol appears to be 325 mg 3 tablets 3 times daily, although this is not clear. In his medication list, it also lists: 1. Milk of magnesia 30 mL daily. 2. Lupron Depot 45 mg due in October. 3. 0.1 twice daily. 4. Eucerin cream daily. 5. Os-[place] 500 mg twice daily. 6. Tucks. 7. Tegretol 100 mg twice daily. 8. Aricept 5 mg daily. 9. Cardizem XR 240 mg daily. HISTORY OF PRESENT ILLNESS: Mr. Dennis is a 72-year-old male that presented to the emergency room on 04/08/17 with an approximate 3- to 4-day history of right lower chest and right flank pain, described as stabbing, waxing and waning with a pleuritic nature, worse with deep breath and coughing. He developed fevers of 100.5 over the past 2 days, which he was directed to come to the emergency room. He denies any nausea or vomiting. Denied any diarrhea. He does suffer from constipation chronically. No blood in the stool or melena. No weight changes. No medication changes to the best of his knowledge. While in the emergency room, he had several exams done. He had a CT of the abdomen and pelvis, please refer to the study section of this report for details. He also had a chest x-ray that initially showed density in the right lung base, which could represent an infiltrate versus atelectasis. A CT confirmed a right lower lobe infiltrate. A repeat chest x-ray on 04/10/17 confirmed right basilar infiltrate and suggested a followup. He has been on room air throughout his hospitalization when O2 saturations between 92% and 96% . In the emergency room, he received Levaquin and Flagyl. Because of the findings of the right lower lobe infiltrate and leukocytosis, the hospitalists were asked to evaluate the patient for admission. While in the hospital, the patient was monitored. His CBC was trended. Initial white count was 22,000 on 04/08/17. On 04/11/17, his white count was 12,000. Today, sodium was 134, potassium was 4.0, chloride was 100, BUN was 24, creatinine was 1.32. Initial creatinine was 1.52. We placed him on ceftriaxone 1 g daily and azithromycin 250 mg IV daily. He did have flu swabs for A and B influenza that were both negative. His p.o. intake has been good. He denies any nausea, vomiting, or diarrhea. He did complain of some constipation and did receive milk of magnesia and senna, which he reports he had a large normal bowel movement today , denied any blood in the bowel. He states that after the bowel movement, his mild lower abdominal tenderness was relieved. While in his hospital stay, his temperature peaked at 102.1. He had a temperature below 100.4 since 04/10/17. Mr. Dennis is stable for discharge back to the correctional facility. Vital signs are as follows: Temperature was 97.6 orally, heart rate was 73, respirations are 20, oxygen saturation on room air was 96%, blood pressure 114/ 61. DISCHARGE PLAN: Mr. Dennis will be discharged back to the correctional facility. Activity as tolerated. He should be on a diabetic diet. In regards to his pneumonia, he will be continued on oral antibiotics. He will be placed on cefdinir 300 mg b.i.d. for 5 days and azithromycin 250 mg daily for 2 days. I have encouraged him to use incentive spirometer 10 times an hour while awake. He can also place hot packs to the right lower ribs for comfort. He can use Tylenol as needed for the pain. I encouraged him to take deep breaths. He should have a followup chest x-ray in 2 weeks to ensure resolution of the right lower lobe infiltrate. The patient was instructed to return to the emergency room with any increased shortness of breath. This is a summary of a complex medical history and hospital stay. For further details, please see the entire medical record. TIME SPENT: On this discharge was approximately 60 minutes, greater than half the time was spent with the patient discussing discharge plans and instructions. CONDITION AT DISCHARGE: Stable. ALEJA DOHERTY, LYNN [id number]/[facility] #: [id number] MARCELINA
== END 2017-04-11 17:45 | DRG 720 ==
LOC: ED 18:46 → MED 04-09 01:43 → EEVIPCON 04-09 01:43
PROVIDERS: ADMIT Internal Medicine; ATTEND Internal Medicine
DX: A41.9 Sepsis, unspecified organism (principal); J18.9 Pneumonia, unspecified organism; J90 Pleural effusion, not elsewhere classified; K82.0 Obstruction of gallbladder; E11.22 Type 2 diabetes mellitus with diabetic chronic kidney disease; C61 Malignant neoplasm of prostate; G30.9 Alzheimer's disease, unspecified; F02.80 Dementia in other diseases classified elsewhere, unspecified severity, without behavioral disturbance, psychotic disturbance, mood disturbance, and anxiety; N28.9 Disorder of kidney and ureter, unspecified; N18.9 Chronic kidney disease, unspecified; I12.9 Hypertensive chronic kidney disease with stage 1 through stage 4 chronic kidney disease, or unspecified chronic kidney disease; F31.9 Bipolar disorder, unspecified; R16.0 Hepatomegaly, not elsewhere classified; K57.30 Diverticulosis of large intestine without perforation or abscess without bleeding; K59.09 Other constipation; E78.5 Hyperlipidemia, unspecified; N32.89 Other specified disorders of bladder; Z96.651 Presence of right artificial knee joint; Z88.2 Allergy status to sulfonamides; Z88.8 Allergy status to other drugs, medicaments and biological substances; Z90.79 Acquired absence of other genital organ(s); Z79.84 Long term (current) use of oral hypoglycemic drugs; Z79.82 Long term (current) use of aspirin; Z88.6 Allergy status to analgesic agent; Z91.041 Radiographic dye allergy status; Z82.49 Family history of ischemic heart disease and other diseases of the circulatory system; Z87.891 Personal history of nicotine dependence; Z56.0 Unemployment, unspecified
CPT/HCPCS: 36415; 71010; 71020; 74176; 76705; 80048; 80053; 81003; 81015; 83605; 83735; 85025; 85060; 85610; 85730; 86140; 87040; 87070; 87205; 87502; 87899; 90732; 93005; A9270-GY; J0456; J0696; J1644; J1885; J1956; J2270; J2405; J3490